=== PATIENT | female | born 1960 | race Caucasian/White ===

== ENCOUNTER 2021-01-09 14:16 | Emergency (ER) | payer MEDICAID, OTHER ==
[~2021-01-09] VITALS: Ht 157.5 cm; Wt 77.1 kg
[2021-01-09] MEDS ORDERED: IBUPROFEN 600 MG TABLET PO ONE (15:45)
[2021-01-09] MEDS ORDERED: IBUPROFEN 600 MG TABLET ONE (15:51)
[2021-01-09 16:03] LABS: *BILIRUBIN,URIN NEGATIVE (NEGATIVE); *BLOOD, URINE NEGATIVE (NEGATIVE); *CLARITY,URINE CLEAR (CLEAR); *COLOR,URINE YELLOW (YELLOW); *KETONES,URINE NEGATIVE (NEGATIVE); *UROBILINOGEN,URINE 0.2 E.U./dl (NORMAL); LEUKOCYTE ESTERASE ,URINE TRACE (NEGATIVE); NITRITE, URINE NEGATIVE (NEGATIVE); UGLUCOSE NEGATIVE (NEGATIVE)
[2021-01-09 16:50] LABS: BACTERIA,URINE NONE SEEN /HPF (NONE SEEN); RBC,URINE 0-3 /HPF (0-3)
[2021-01-09 16:51] LABS: SQUAMOUS EPITHELIAL CELL,UR FEW /HPF (NONE SEEN)
[2021-01-09 16:53] LABS: CALCIUM OXALATE CRYSTALS,UR RARE /HPF (NONE SEEN)
[2021-01-09 18:08] VITALS: BP 129/81
--- NOTE | 2021-01-09 18:08 | NUR ---
PT WAS EVALUATED BY DR LUNDY. PT WAS D/C'd TO HOME. D/C INSTRUCTIONS GIVEN TO THE PT BY DR LUNDY.
== END 2021-01-09 18:09 | disposition home or self-care (01) ==
LOC: ER 14:16
DX: M54.9 Dorsalgia, unspecified (principal)
CPT/HCPCS: A4663

== ENCOUNTER 2023-07-20 07:52 | Emergency (ER) | payer MEDICAID, OTHER ==
[~2023-07-20] VITALS: Ht 160 cm; Wt 51.3 kg
[2023-07-20 08:39] LABS: *BILIRUBIN,URIN NEGATIVE (NEGATIVE); *BLOOD, URINE 3+ (NEGATIVE); *CLARITY,URINE CLEAR (CLEAR); *COLOR,URINE YELLOW (YELLOW); *KETONES,URINE NEGATIVE (NEGATIVE); *PROTEIN,URINE NEGATIVE (NEGATIVE); *UROBILINOGEN,URINE 0.2 E.U./dl (NORMAL); LEUKOCYTE ESTERASE ,URINE 1+ (NEGATIVE); NITRITE, URINE NEGATIVE (NEGATIVE); PH,URINE 5.5 (5.0-8.0); UGLUCOSE NEGATIVE (NEGATIVE)
[2023-07-20 09:12] LABS: BACTERIA,URINE MODERATE /HPF (NONE SEEN); SQUAMOUS EPITHELIAL CELL,UR FEW /HPF (NONE SEEN); WBC,URINE 50-80 /HPF (0-3)
[2023-07-20] MEDS ORDERED: DOXY100C5 PO (09:44)
[2023-07-20 09:55] VITALS: BP 130/87; TEMP 98; O2SAT 99
== END 2023-07-20 09:55 | disposition home or self-care (01) ==
LOC: ER 07:52
DX: N10 Acute pyelonephritis (principal); Z79.899 Other long term (current) drug therapy
CPT/HCPCS: A4606; A4663